=== PATIENT | male | born 1945 | race Caucasian/White ===

== ENCOUNTER 2020-11-21 08:32 | Emergency (ER) | payer MEDICARE ==
[2020-11-21] MEDS ORDERED: Adacel Vial IM ONE ×2 (08:45→09:49)
[2020-11-21 09:04] VITALS: O2SAT 98
--- NOTE | 2020-11-21 09:20 | XRAY ---
Indication: Right head laceration following fall. Multiple contiguous axial images obtained through the head without contrast. Comparison: July 04, 2007. Again age-appropriate global atrophy, moderate periventricular degenerative micro-ischemia bilaterally, right ventricular shunt catheter with tip again in frontal horn of left lateral ventricle, and scattered dural calcifications bilaterally. Slight increasing diffuse ventriculomegaly. No acute intracranial hemorrhage, abnormal extra-axial fluid collection, or mass effect. Fourth ventricle is midline. Tiny right parietal scalp hematoma. Bony calvarium intact. Paranasal sinuses and mastoid air cells are clear. Impression: 1. Slight increasing ventriculomegaly with again ventricular shunt catheter in situ. 2. Tiny right parietal scalp hematoma. No underlying fracture or acute intracranial hemorrhage. 3. Again global atrophy, degenerative micro-ischemia, and dural calcifications.
--- NOTE | 2020-11-21 09:25 | ERPHSYRPT ---
- History of Present Illness Source: patient, other (Brother) Patient Subjective Stated Complaint: Head injury Triage Nursing Assessment: Patient brought back to ED via w/c and transferred to bed with assist of 1. Patient A+O X 3. Patient's skin pink,warm and dry. Patient complains of head injury after falling. Patient states he was taking a walk outside and it started raining he was trying to get inside quickly and tripped over a rug and it his head. Patient has small abrasion noted to right side of forehead and right side of chest. No active bleeding noted. Physician History: 75 yo wm w Parkinson's Ds/Dementia slipped and fell in yard this morning hitting his R frontal scalp area. LOC is denied, but he was dazed. He is not on anticoagulants. He denies C/T/L-spine pain/chest pain/focal weakness/hip pain/cough/fever/N/V/D. Occurred: just prior to arrival Reason for Fall: slipped, tripped Injuries/Pain Location: head, chest Loss of Consciousness: no loss of consciousness, dazed Quality: aching Severity of Pain-Max: moderate Severity of Pain-Current: moderate Modifying Factors: Improves With: nothing Associated Symptoms (Fall): headache, No abdominal pain, No back pain, No confusion, No chest pain, No dizziness, No extremity injury, No lightheadedness, No muscle spasms, No nausea, No neck pain, No ringing in ears, No seizures, No shortness of breath, No slurred speech, No trouble walking, No vomiting, No vision changes Allergies/Adverse Reactions: Iodinated Contrast Media Allergy (Verified 11/21/20 08:49) morphine Allergy (Verified 11/21/20 08:49) Home Medications: Amantadine HCl [Amantadine] 1 tab PO BID 11/21/20 [History] Phenytoin Sod Extended 100 mg* [Dilantin 100 MG] 1 tab PO BID 11/21/20 [History] Hx Influenza Vaccination/Date Given: Yes Hx Pneumococcal Vaccination/Date Given: No Immunizations Up to Date: Yes Travel Risk - International Travel Have you traveled outside of the country in past 3 weeks: No - Coronavirus Screening Are you exhibiting any of the following symptoms?: No Close contact with a COVID-19 positive Pt in past 14-21 Days: No - Vaccine Status Have you recieved a Covid-19 vaccination: Yes Primary Therapist: Modern[facility] - Vaccination Dates Date of 2cond Vaccination (if applicable): 07/02/2020 - Review of Systems Constitutional: No Symptoms Eyes: No Symptoms Ears, Nose, & Throat: No Symptoms Respiratory: No Symptoms Cardiac: No Symptoms Abdominal/Gastrointestinal: No Symptoms, Appetite Changes Musculoskeletal: No Symptoms Skin: No Symptoms Neurological: No Symptoms, Headache Psychological: No Symptoms Endocrine: No Symptoms Hematologic/Lymphatic: No Symptoms Immunological/Allergic: No Symptoms - Past Medical History Pertinent Past Medical History: Yes Neurological History: Alzheimer's Disease, Dementia, Seizures, Other ENT History: No Pertinent History Cardiac History: No Pertinent History Respiratory History: No Pertinent History Endocrine Medical History: No Pertinent History Musculoskeletal History: No Pertinent History GI Medical History: No Pertinent History History: No Pertinent History Psycho-Social History: No Pertinent History Male Reproductive Disorders: No Pertinent History Other Medical History: Parkinson's disease - Past Surgical History Past Surgical History: Yes Musculoskeletal: Orthopedic Surgery Other Surgical History: back surgery X 2, Shunt to head, Left hip replacement - Social History Smoking Status: Never smoker Exposure to second hand smoke: No Drug Use: none Patient Lives Alone: No (lives with family) Significant Family History: no pertinent family hx - Nursing Vital Signs Nursing Vital Signs: Initial Vital Signs Temperature 98.2 F 11/21/20 08:52 Pulse Rate 76 11/21/20 08:52 Respiratory Rate 18 11/21/20 08:52 Blood Pressure 145/79 11/21/20 08:52 O2 Sat by Pulse Oximetry 98 11/21/20 08:52 Pain Scale Pain Intensity 4 Hypertensive - Joyce Coma Score Best Eye Response (Joyce): (4) open spontaneously Best Verbal Response ([place]): (5) oriented Best Motor Response ([place]): (6) obeys commands [place] Total: 15 - Physical Exam General Appearance: no apparent distress Head Injury: active bleeding, tenderness (R frontal scalp) Eye Exam: PERRL/EOMI, eyes nml inspection ENT Exam: airway nml, No evidence of ENT injury, No clear fluid (ears), No clear fluid (nose) Neck Exam: supple, trachea midline, full range of motion (C-spine nttp) Respiratory/Chest Exam: chest tenderness (Small abrasion R superior thorax w mild TTP), normal breath sounds, No respiratory distress Cardiovascular Exam: normal heart sounds, regular rate/rhythm, normal peripheral pulses, No murmur Gastrointestinal Exam: soft, normal bowel sounds, No tenderness Back Exam: normal inspection, normal range of motion, No CVA tenderness, No vertebral tenderness (No T/L-spine ttp) Extremity Exam: normal inspection, pelvis stable Peripheral Pulses: carotid (R): 2+, carotid (L): 2+ Neurologic Exam: alert, oriented x 3, cooperative, wine pasteurizer II-XII nml as tested, normal mood/affect, nml cerebellar function, nml station & gait, sensation nml, No motor deficits, No sensory deficit Skin Exam: normal color, warm, dry SpO2 Interpretation: normal SpO2: 98 O2 Delivery: Room Air - Course Nursing assessment & vital signs reviewed: Yes - Radiology Exams Chest X-ray Interpretation: Discussed w/ radiologist (CXR wo acute disease) - CT Exams Head CT Interpretation: Tele-radiologist Report (No skull fx/intracranial bleed) Cervical Spine CT Interpretation: Discussed w/radiologist (No fx) Ordered Tests: Active Orders 24 hr Category Date Time Status CERVICAL SPINE WO CONTRAST [CT] Stat Exams 11/21/20 08:44 Completed CHEST 1 VIEW (PORTABLE) Stat Exams 11/21/20 08:45 Completed HEAD WITHOUT CONTRAST [CT] Stat Exams 11/21/20 08:44 Completed Medication Summary Discontinued Medications Generic Name Dose Route Start Last Admin Trade Name Freq PRN Reason Stop Dose Admin Diphtheria/Tetanus/Acell Pertussis 0.5 ml 11/21/20 08:45 11/21/20 09:57 Adacel Vial IM 11/21/20 08:46 0.5 ml .ONCE ONE Administration Diphtheria/Tetanus/Acell Pertussis Confirm 11/21/20 09:49 Adacel Vial Administered 11/21/20 09:50 Dose 0.5 ml IM .STK-MED ONE Ketorolac Tromethamine 30 mg 11/21/20 09:38 11/21/20 09:50 Toradol 30 Mg Injection IM 11/21/20 09:39 30 mg STAT ONE Administration Ketorolac Tromethamine Confirm 11/21/20 09:48 Toradol 30 Mg Injection Administered 11/21/20 09:49 Dose 30 mg .ROUTE .STK-MED ONE - Progress Progress: improved Progress Note: 11/21/20 09:39 Tdap/30mg IM Toradol Counseled pt/family regarding: diagnosis, need for follow-up, rad results - Departure Departure Disposition: Home Clinical Impression: Minor head injury Condition: Stable Critical Care Time: No Referrals: LUCIANO GONZALEZ MD [Primary Care Provider] - Instructions: Concussion, Adult (DC), Minor Head Injury (DC) Additional Instructions: Ice to contused areas for 12-24 hours Toradol as needed for pain Wash abrasions twice a day with soap/water Watch for signs of infection-redness/pain/pus/temperature greater than 100.5 Return to ER for increasing pain/Focal weakness/Vomiting more than 4 times within 1 hour Prescriptions: Ketorolac Tromethamine [Toradol] 10 mg PO TIDPRN PRN #7 tablet PRN Reason: Pain
--- NOTE | 2020-11-21 09:26 | XRAY ---
Indication: Status post fall. Multiple contiguous axial images obtained through the cervical spine. Sagittal and coronal reformatted images obtained. Comparison: None Osseous structures demineralized consistent with patient's age. Axial images negative for acute fracture, suspicious bony lesions, or spinal canal stenosis. Moderate/significant multilevel degenerative endplate spurring, C5 and bilateral degenerative facet hypertrophy. Also moderate atlantoaxial degenerative arthropathy minimal C5-C6/C6-C7 degenerative vacuum disc phenomena. Sagittal and coronal reformatted images demonstrates lordotic straightening, positional versus paraspinal spasm. 2-3 mm C3 and 3-4 mm C4 anterior listhesis. No acute compression fracture or jumped facet. Normal appearing craniocervical junction. Visualized noncontrasted soft tissues demonstrates minimal carotid calcifications and biapical pleural parenchymal processes/scarring. Impression: 1. Cervical lordotic straightening, positional versus paraspinal spasm. 2. Osteopenia, multilevel degenerative spondylosis, and C3/C4 grade 1 spondylolisthesis. 3. Negative acute fracture.
--- NOTE | 2020-11-21 09:26 | XRAY ---
Indication: Status post fall. Comparison: None Portable chest demonstrates normal heart and lungs. Bony thorax intact with mild osteopenia and degenerative changes.
[2020-11-21] MEDS ORDERED: TORAdol 30 mg Injection IM ONE (09:38)
[2020-11-21] MEDS ORDERED: TORAdol 30 mg Injection ONE (09:48)
[2020-11-21 10:04] VITALS: BP 141/93; PULSE 91
== END 2020-11-21 10:25 | disposition home or self-care (01) ==
LOC: ED 08:32
DX: S00.83XA Contusion of other part of head, initial encounter (principal); W01.0XXA Fall on same level from slipping, tripping and stumbling without subsequent striking against object, initial encounter; R51.9 Headache, unspecified; R07.89 Other chest pain; Z79.899 Other long term (current) drug therapy; S00.81XA Abrasion of other part of head, initial encounter
CPT/HCPCS: 70450; 71045; 72125; 90471; 90715; 96372; 99284; J1885

== ENCOUNTER 2021-10-03 10:45 | Observation (INO) | payer MEDICARE ==
[2021-10-03 12:28] LABS: Absolute Neutrophil Ct (ANC) 4.05 x10^3/uL (1.4-6.9); Basophil (Absolute #) 0.07 x10^3/uL (0-0.4); Eosinophil % 3.2 % (0.00-5.0); Eosinophil (Absolute #) 0.21 x10^3/uL (0-0.5); Hematocrit 43.6 % (42-50); Hemoglobin 14.2 g/dL (12.5-18.0); Lymphocyte (Absolute #) 1.54 x10^3/uL (1.0-4.6); Lymphocytes % 23.2 % (24.0-44.0); Mean Cell Volume 98.2 fL (78-100); Mean Corpuscular Hgb Concent. 32.6 g/dL (32-36); Mean Platelet Volume 9.1 fL (7.5-11.0); Monocyte (Absolute #) 0.74 x10^3/uL (0.0-1.3); Monocytes % 11.1 % (0.0-12.0); Neutrophil % 60.9 % (36.0-66.0); Platelet Count 265 x10^3/uL (150-450); Red Blood Count 4.44 x10^6/uL (4.1-5.6); Red Cell Distribution Width 12.6 % (11.5-14.0); White Blood Count 6.6 x10^3/uL (4.0-10.5)
[2021-10-03 12:34] LABS: INFLUENZA A NEGATIVE (NEGATIVE); INFLUENZA B NEGATIVE (NEGATIVE); RESPIRATORY SYNCTIAL VIRUS NEGATIVE (Negative); SARS-CoV-2 Xpert Express NEGATIVE (NEGATIVE)
[2021-10-03 12:50] LABS: ALBUMIN 4.2 g/dL (3.5-5.0); ALKALINE PHOSPHATASE 117 U/L (38-126); BLOOD UREA NITROGEN 20 mg/dL (9-20); CHLORIDE 101 mmol/L (98-107); Calcium 9.4 mg/dL (8.4-10.2); Carbon Dioxide 26 mmol/L (22-30); Creatinine 1 0.84 mg/dL (0.66-1.25); EST GLOMERULAR FILTRATION RATE > 60.0 ML/MIN; Glucose 142 mg/dL (74-106); NT PRO BNP 1410 pg/mL (0-1800); Potassium 4.2 mmol/L (3.5-5.1); SGOT/AST 34 U/L (17-59); SGPT/ALT 38 U/L (0-50); SODIUM 137 mmol/L (137-145); Total Protein 7.9 g/dL (6.3-8.2)
[2021-10-03] MEDS: Nicoderm CQ 21 MG TOP SCH (12:53)
[2021-10-03] MEDS: Lasix 40 MG/4 ML IV SCH (12:54)
[2021-10-03] MEDS ORDERED: MEDICATION INTERVENTION MC SCH (14:30)
--- NOTE | 2021-10-03 15:02 | XRAY ---
Indication: Short of breath. Comparison: November 21, 2020. PA/lateral chest again hyperinflated and clear. Heart not enlarged with new small hiatal hernia. Bony thorax intact again with osteopenia and degenerative changes. No acute findings.
[2021-10-03] MEDS: Mirapex 0.5 MG Tablet PO SCH ×2 (15:15→22:27)
[2021-10-03] MEDS: Sinemet 25/100 MG PO SCH ×2 (15:16→22:27)
--- NOTE | 2021-10-03 16:40 | XRAY ---
Indication: Bilateral leg swelling. Two-dimensional sonogram and color Doppler imaging of the major venous vessels of the left and right leg performed. Comparison: None No thrombus seen in the examined deep venous vessels of the left and right leg including greater saphenous vein. Veins demonstrate normal compressibility. Venous waveforms are normal with and without augmentation. Impression: Left and right legs negative for DVT.
[2021-10-03] MEDS ORDERED: TYLENOL EXTRA STRENGTH 500 MG PO PRN (17:51)
[2021-10-03] MEDS: ZYLOPRIM 100 MG PO SCH (18:31)
[2021-10-03] MEDS: Toprol-Xl 25MG Tablets PO SCH (20:50)
[2021-10-03] MEDS: ELIQUIS 2.5 MG TABLET PO SCH (20:50)
[2021-10-03] MEDS ORDERED: Dilantin 100 MG PO SCH (22:00)
[2021-10-03] MEDS ORDERED: AMANTADINE HCL 100 MG PO SCH (22:00)
[2021-10-04] MEDS: Toprol-Xl 25MG Tablets PO SCH (10:12)
[2021-10-04] MEDS: Lasix 40 MG/4 ML IV SCH (10:12)
[2021-10-04] MEDS: Sinemet 25/100 MG PO SCH (10:12)
[2021-10-04] MEDS: ELIQUIS 2.5 MG TABLET PO SCH (10:12)
[2021-10-04] MEDS: Mirapex 0.5 MG Tablet PO SCH (10:12)
[2021-10-04] MEDS: ZYLOPRIM 100 MG PO SCH (10:13)
[2021-10-04] MEDS: Nicoderm CQ 21 MG TOP SCH (11:03)
--- NOTE | 2021-10-04 11:25 | ECHO ---
Transthoracic echocardiographic examination and color Doppler was done on 10/03/2021. INDICATION: Shortness of breath. IMPRESSION: 1) NO DEFINITE REGIONAL WALL MOTION ABNORMALITY. ESTIMATED GLOBAL LEFT VENTRICULAR EJECTION FRACTION AROUND 50 TO 55%. 2) MILD MITRAL REGURGITATION. 3) TRACE TRICUSPID REGURGITATION. RIGHT VENTRICULAR SYSTOLIC PRESSURE OF 40 MM OF MERCURY. 4) LEFT VENTRICULAR HYPERTROPHY. The left ventricle is visualized and demonstrated adequate motion of all the segments. Estimated global left ventricular ejection fraction of around 50 to 55%. There is some mild left ventricular hypertrophy. The mitral valve is seen and this opens adequately. There is mild mitral regurgitation. Left atrium is upper limits of normal. The aortic valve opens adequately. The peak gradient across the aortic valve is 11 mm of Mercury. The aortic root appears to be at upper limits of normal. The right side chambers are normal. There is trace tricuspid regurgitation. The right ventricular systolic pressure of 40 mm of Mercury.
[2021-10-04 12:16] VITALS: BP 126/56; PULSE 77; O2SAT 94
--- NOTE | 2021-10-04 17:56 | PCM.SSS ---
History of Present Illness - Chief Complaint Chief Complaint: shortness of breath, leg swelling for 3-4 days History of Present Illness: is a 76 year old male seen in office c/o palpitations and shortness of breath for 2-3 days. He has difficulty in breathing even at rest. - Review of Systems Constitutional: Fatigue, Lethargy, Weakness, No Fever, No Chills Eyes: No Symptoms Ears, Nose, & Throat: No Symptoms Respiratory: Orthopnea, Short Of Breath, No Cough Cardiac: Edema, Palpitations, No Chest Pain, No Syncope Abdominal/Gastrointestinal: No Abdominal Pain, No Nausea, No Vomiting, No Diarrhea Genitourinary Symptoms: No Dysuria Musculoskeletal: No Back Pain, No Neck Pain Skin: No Rash Neurological: No Dizziness, No Focal Weakness, No Sensory Changes Psychological: No Symptoms Endocrine: No Symptoms Hematologic/Lymphatic: No Symptoms Immunological/Allergic: No Symptoms Medications & Allergies Home Medications: Home Medication List Phenytoin Sod Extended 100 mg* [Dilantin 100 MG] 100 mg PO HS 11/21/20 [History Confirmed 10/03/21] amantadine HCL [Amantadine] 100 mg PO BID 11/21/20 [History Confirmed 10/03/21] Carbidopa/Levodopa 25/100 mg [Sinemet 25/100 MG] 1 tab PO TID 10/03/21 [History Confirmed 10/03/21] Pramipexole Di-HCl 0.5 mg [Mirapex 0.5 MG Tablet] 0.5 mg PO TID 10/03/21 [History Confirmed 10/03/21] Allopurinol 100 mg [Zyloprim 100 mg] 100 mg PO DAILY #30 tablet 10/04/21 [Rx] Apixaban [Eliquis 2.5 mg Tablet] 5 mg PO BID #60 tablet 10/04/21 [Rx] Furosemide 20 mg [Lasix 20 mg] 20 mg PO DAILY #30 tablet 10/04/21 [Rx] Metoprolol Succinate 25 mg Xl* [Toprol-Xl 25MG Tablets] 25 mg PO DAILY #30 tab 10/04/21 [Rx] Allergies/Adverse Reactions: Allergies Allergy/AdvReac Type Severity Reaction Status Date / Time Iodinated Contrast Media Allergy Verified 10/03/21 12:22 morphine Allergy Verified 10/03/21 12:22 - Past Medical History Past Medical History: Yes Neurological History: Alzheimer's Disease, Dementia, Seizures, Other ENT History: No Pertinent History Cardiac History: No Pertinent History Respiratory History: No Pertinent History Endocrine Medical History: No Pertinent History Musculoskelatal History: No Pertinent History GI Medical History: No Pertinent History History: No Pertinent History Pyscho-Social History: No Pertinent History Male Reproductive Disorders: No Pertinent History Comment: Parkinson's disease - Past Surgical History Past Surgical History: Yes Musculskeletal Surgical Hx: Orthopedic Surgery Other Surgical History: back surgery X 2, Shunt to head, Left hip replacement - Social History Smoking Status: Never smoker Exposure to second hand smoke: No Alcohol: None Drug Use: none Significant Family History: no pertinent family hx - Physical Exam Vital Signs: Vital Signs - 24 hr Temp Pulse Resp BP Pulse Ox 10/04/21 12:00 96.6 F 77 16 126/56 94 L 10/04/21 08:00 97.9 F 68 16 134/67 97 10/04/21 07:41 20 10/04/21 04:00 20 10/04/21 03:51 97.3 F 82 20 104/69 96 10/04/21 00:00 16 10/03/21 23:39 97.7 F 100 H 16 117/61 95 10/03/21 20:00 97.5 F 102 H 15 144/76 95 General Appearance: no apparent distress, alert Neurologic Exam: alert, oriented x 3, cooperative, normal mood/affect, nml cerebellar function, nml station & gait, sensation nml, No motor deficits Eye Exam: PERRL/EOMI, eyes nml inspection Ears, Nose, Throat Exam: normal ENT inspection, TMs normal, pharynx normal, moist mucous membranes Neck Exam: normal inspection, non-tender, supple, full range of motion Respiratory Exam: diminished breath sounds, accessory muscle use, crack les/rales, rhonchi, No respiratory distress Cardiovascular Exam: irregular Gastrointestinal/Abdomen Exam: soft, normal bowel sounds, No tenderness, No mass Back Exam: normal inspection, normal range of motion, No CVA tenderness, No vertebral tenderness Extremity Exam: normal inspection, normal range of motion, pelvis stable Skin Exam: normal color, warm, dry, No rash Lymphatic Exam: No adenopathy Results - Labs Lab/Micro Results: Lab Results-Last 24 Hours 10/03/21 Range/Units 18:57 Troponin I 0.021 (0.000-0.034) ng/mL - Radiology Impressions Radiology Exams & Impressions: Radiology Procedures Category Date Time Status CHEST 2 VIEWS (PA AND LAT) Routine Exams 10/03/21 13:46 Completed ECHO W/2D AND DOPPLER [US] Routine Exams 10/03/21 13:45 Draft VENOUS BILATERAL EXTREMITY [US] Stat Exams 10/03/21 16:25 Completed Imaging Report Continued Page: Name: GENNY BABIN Procedure Date: 10/03/21 Procedures: US/ECHO W/2D AND DOPPLER Technologist: Magdalena Guo Transcribed: 10/04/21 111 Repeater Chief: Dorcas Shen Printed: [~ rep prt dt last] [~ rep prt tm last] Page: Imaging Report [~ rep ct labl] Technologist: Magdalena Guo Transcribed: 10/04/21 111 Repeater Chief: Dorcas Shen Printed: [~ rep prt dt last] [~ rep prt tm last] Page: Imaging Report [~ rep ct labl] US/ECHO W/2D AND DOPPLER Transthoracic echocardiographic examination and color Doppler was done on 10/03/2021. INDICATION: Shortness of breath. IMPRESSION: 1) NO DEFINITE REGIONAL WALL MOTION ABNORMALITY. ESTIMATED GLOBAL LEFT VENTRICULAR EJECTION FRACTION AROUND 50 TO 55%. 2) MILD MITRAL REGURGITATION. 3) TRACE TRICUSPID REGURGITATION. RIGHT VENTRICULAR SYSTOLIC PRESSURE OF 40 MM OF MERCURY. 4) LEFT VENTRICULAR HYPERTROPHY. The left ventricle is visualized and demonstrated adequate motion of all the segments. Estimated global left ventricular ejection fraction of around 50 to 55%. There is some mild left ventricular hypertrophy. The mitral valve is seen and this opens adequately. There is mild mitral regurgitation. Left atrium is upper limits of normal. The aortic valve opens a dequately. The peak gradient across the aortic valve is 11 mm of Mercury. The aortic root appears to be at upper limits of normal. The right side chambers are normal. There is trace tricuspid regurgitation. The right ventricular systolic pressure of 40 mm of Mercury. Assessment/Plan (1) Atrial fibrillation and flutter Status: Acute Assessment & Plan: Chief Complaint Diagnosis LEG SWELLING Allergies Allergy/AdvReac Type Severity Reaction Status Date / Time Iodinated Contrast Media Allergy Verified 10/03/21 12:22 morphine Allergy Verified 10/03/21 12:22 Vital Signs (Last 24 hours) Temp Pulse Resp BP Pulse Ox 10/04/21 12:00 96.6 F 77 16 126/56 94 L 10/04/21 08:00 97.9 F 68 16 134/67 97 10/04/21 07:41 20 10/04/21 04:00 20 10/04/21 03:51 97.3 F 82 20 104/69 96 10/04/21 00:00 16 10/03/21 23:39 97.7 F 100 H 16 117/61 95 10/03/21 20:00 97.5 F 102 H 15 144/76 95 Home Medications Medication Instructions Recorded Confirmed Last Taken Type Carbidopa/Levodopa 25/100 mg 1 tab PO TID 10/03/21 10/03/21 10/03/21 History [Sinemet 25/100 MG] Pramipexole Di-HCl 0.5 mg 0.5 mg PO TID 10/03/21 10/03/21 10/03/21 History [Mirapex 0.5 MG Tablet] Allopurinol 100 mg [Zyloprim 100 mg PO DAILY #30 tablet 10/04/21 Unknown Rx 100 mg] Apixaban [Eliquis 2.5 mg Tablet] 5 mg PO BID #60 tablet 10/04/21 Unknown Rx Furosemide 20 mg [Lasix 20 20 mg PO DAILY #30 tablet 10/04/21 Unknown Rx mg] Metoprolol Succinate 25 mg Xl* 25 mg PO DAILY #30 tab 10/04/21 Unknown Rx [Toprol-Xl 25MG Tablets] Current Medications Discontinued Medications Generic Name Dose Route Start Last Admin Trade Name Freq PRN Reason Stop Dose Admin Acetaminophen 500 mg 10/03/21 17:51 Acetaminophen 500 Mg Tablet PO 11/02/21 17:50 Q6H PRN PRN HEADACHE Allopurinol 100 mg 10/03/21 18:00 10/04/21 10:13 Allopurinol 100 Mg Tablet PO 11/02/21 17:59 100 mg DAILY DAVID Administration Apixaban 5 mg 10/03/21 22:00 10/04/21 10:12 Apixaban 2.5 Mg Tablet PO 11/02/21 21:59 5 mg BID DAVID Administration Carbidopa/Levodopa 1 tab 10/03/21 15:00 10/04/21 10:12 Carbidopa/Levodopa 25/100 1 Tab Tablet PO 11/02/21 14:59 1 tab TID DAVID Administration Furosemide 40 mg 10/03/21 12:45 10/04/21 10:12 Furosemide 40 Mg/4 Ml Vial IV 11/02/21 12:44 40 mg DAILY DAVID Administration Metoprolol Succinate 25 mg 10/03/21 22:00 10/04/21 10:12 Metoprolol Succinate 25 Mg Xl Tab PO 11/02/21 21:59 25 mg DAILY DAVID Administration Miscellaneous Information 1 each 10/03/21 14:30 Medication Intervention 1 Each Each 11/02/21 14:29 .RN TO CHECK DAVID Nicotine 21 mg 10/03/21 12:15 10/04/21 11:03 Nicotine 21 Mg/Patch Patch TOP 11/02/21 12:14 21 mg Q24H DAVID Administration Phenytoin Sodium 100 mg 10/03/21 22:00 10/03/21 22:27 Phenytoin Sodium Extended 100 Mg Capsule PO 11/02/21 21:59 100 mg HS DAVID Administration Pramipexole Dihydrochloride 0.5 mg 10/03/21 15:00 10/04/21 10:12 Pramipexole Di-Hcl 0.5 Mg Tab PO 11/02/21 14:59 0.5 mg TID DAVID Administration Intake & Output (Last 24 hours) 10/02/21 10/03/21 10/04/21 10/05/21 11:59 11:59 11:59 11:59 Intake Total 1020 Output Total 1800 Balance -780 Weight 75.1 kg Laboratory Results (Last 24 hours) 10/03/21 18:57 Troponin I 0.021 Orders (Last 24 hours) Category Date Time Status Discharge Routine Discharge 10/04/21 Ordered Discharge/Telephone Order Routine Discharge 10/04/21 Active TROPONIN Stat Lab 10/03/21 18:57 Completed Acetaminophen 500 mg [Tylenol Extra Strength 500 mg* Med 10/03/21 17:51 Discontinued ] 500 mg PO Q6H PRN PRN Allopurinol 100 mg [Zyloprim 100 mg] Med 10/03/21 18:00 Discontinued 100 mg PO DAILY Apixaban [Eliquis 2.5 mg Tablet] Med 10/03/21 22:00 Discontinued 5 mg PO BID Metoprolol Succinate 25 mg Xl* [Toprol-Xl 25MG Tablets* Med 10/03/21 22:00 Discontinued ] 25 mg PO DAILY Phenytoin Sod Extended 100 mg* [Dilantin 100 MG] Med 10/03/21 22:00 Discontinued 100 mg PO HS EKG STAT RT 10/03/21 18:46 Completed Patient Care Notes (Last 24 hours) 10/04/21 14:41 Case Management Note by Hermelinda May S/W DR. PADILLA OFFICE- THEY WILL PUT A NOTE ON THE CHART TO S/W ABOUT ELIQUIS AT HIS APT. ON SATURDAY Initialized on 10/04/21 14:41 - END OF NOTE 10/04/21 14:33 Case Management Note by Hermelinda May BROTHER NOTIFIED OF SAMPLES ARE OFFICE- WILL PICK THEM UP AND GET THEM TO PATIENT THIS EVENING. HE WAS NOTIFIED PATIENT CAN TALK WITH PHARMACY AND MD TO SEE IF THERE ARE ANY ADDITIONAL ASSISTANCE HE CAN GET TO PAY FOR THE ELIQUIS. MESSAGE ALSO LEFT WITH MELANIA MAURICIO TO LET HER KNOW THE SAME Initialized on 10/04/21 14:33 - END OF NOTE 10/04/21 14:05 Case Management Note by Hermelinda May NOTED ELIQUIS ON DC PAPERWORK- CALLED [facility] TO CHECK ON CRUZ. THEY WILL NOT HAVE IT IN UNTIL TOMORROW AND IT WILL LIKLY NOT BE COVERED BY PATIENT'S I NSURANCE. CALLED DR. ROTHMAN OFFICE- THEY HAVE SAMPLES AVAILABLE FOR PATIENT.CALLED PATIENT, BRENNA AND BROTHER BILL TO NOTIFY THEM OF THIS- NO ONE ANSWERED. LM X 3 Initialized on 10/04/21 14:05 - END OF NOTE 10/03/21 18:49 Nursing Note by Dottie Ruffin patient c/o increased shortness of breath. HR [address] Tyra Gonzalez. EKG. troponin, and new medications ordered ( see MAR) Initialized on 10/03/21 18:49 - END OF NOTE Code(s): I48.91 - UNSPECIFIED ATRIAL FIBRILLATION; I48.92 - UNSPECIFIED ATRIAL FLUTTER (2) CHF (congestive heart failure), NYHA class II Status: Acute Code(s): I50.9 - HEART FAILURE, UNSPECIFIED (3) Osteoarthritis of knee Status: Acute Code(s): M17.10 - UNILATERAL PRIMARY OSTEOARTHRITIS, UNSPECIFIED KNEE (4) Parkinson's disease (tremor, stiffness, slow motion, unstable posture) Status: Acute Code(s): G20 - PARKINSON'S DISEASE Hospital Summary - Hospital Course Hospital Course: Last Vital Signs Temp 96.6 F 10/04/21 12:00 Pulse 77 10/04/21 12:00 Resp 16 10/04/21 12:00 BP 126/56 10/04/21 12:00 Pulse Ox 94 L 10/04/21 12:00 Allergies Iodinated Contrast Media Allergy (Verified 10/03/21 12:22) morphine Allergy (Verified 10/03/21 12:22) Intake & Output 10/04/21 10/05/21 11:59 11:59 Intake Total 1020 Output Total 1800 Balance -780 Orders 10/04/21 Discharge Routine Discharge/Telephone Order Routine Lab Tests 10/03/21 18:57 Troponin I 0.021 Chief Complaint Diagnosis LEG SWELLING Allergies Allergy/AdvReac Type Severity Reaction Status Date / Time Iodinated Contrast Media Allergy Verified 10/03/21 12:22 morphine Allergy Verified 10/03/21 12:22 Vital Signs (Last 24 hours) Temp Pulse Resp BP Pulse Ox 10/04/21 12:00 96.6 F 77 16 126/56 94 L 10/04/21 08:00 97.9 F 68 16 134/67 97 10/04/21 07:41 20 10/04/21 04:00 20 10/04/21 03:51 97.3 F 82 20 104/69 96 10/04/21 00:00 16 10/03/21 23:39 97.7 F 100 H 16 117/61 95 10/03/21 20:00 97.5 F 102 H 15 144/76 95 Home Medications Medication Instructions Recorded Confirmed Last Taken Type Carbidopa/Levodopa 25/100 mg 1 tab PO TID 10/03/21 10/03/21 10/03/21 History [Sinemet 25/100 MG] Pramipexole Di-HCl 0.5 mg 0.5 mg PO TID 10/03/21 10/03/2110/03/22 History [Mirapex 0.5 MG Tablet] Allopurinol 100 mg [Zyloprim 100 mg PO DAILY #30 tablet 10/04/21 Unknown Rx 100 mg] Apixaban [Eliquis 2.5 mg Tablet] 5 mg PO BID #60 tablet 10/04/21 Unknown Rx Furosemide 20 mg [Lasix 20 20 mg PO DAILY #30 tablet 10/04/21 Unknown Rx mg] Metoprolol Succinate 25 mg Xl* 25 mg PO DAILY #30 tab 10/04/21 Unknown Rx [Toprol-Xl 25MG Tablets] Current Medications Discontinued Medications Generic Name Dose Route Start Last Admin Trade Name Freq PRN Reason Stop Dose Admin Acetaminophen 500 mg 10/03/21 17:51 Acetaminophen 500 Mg Tablet PO 11/02/21 17:50 Q6H PRN PRN HEADACHE Allopurinol 100 mg 10/03/21 18:00 10/04/21 10:13 Allopurinol 100 Mg Tablet PO 11/02/21 17:59 100 mg DAILY DAVID Administration Apixaban 5 mg 10/03/21 22:00 10/04/21 10:12 Apixaban 2.5 Mg Tablet PO 11/02/21 21:59 5 mg BID DAVID Administration Carbidopa/Levodopa 1 tab 10/03/21 15:00 10/04/21 10:12 Carbidopa/Levodopa 25/100 1 Tab Tablet PO 11/02/21 14:59 1 tab TID DAVID Administration Furosemide 40 mg 10/03/21 12:45 10/04/21 10:12 Furosemide 40 Mg/4 Ml Vial IV 11/02/21 12:44 40 mg DAILY DAVID Administration Metoprolol Succinate 25 mg 10/03/21 22:00 10/04/21 10:12 Metoprolol Succinate 25 Mg Xl Tab PO 11/02/21 21:59 25 mg DAILY DAVID Administration Miscellaneous Information 1 each 10/03/21 14:30 Medication Intervention 1 Each Each 11/02/21 14:29 .RN TO CHECK DAVID Nicotine 21 mg 10/03/21 12:15 10/04/21 11:03 Nicotine 21 Mg/Patch Patch TOP 11/02/21 12:14 21 mg Q24H DAVID Administration Phenytoin Sodium 100 mg 10/03/21 22:00 10/03/21 22:27 Phenytoin Sodium Extended 100 Mg Capsule PO 11/02/21 21:59 100 mg HS DAVID Administration Pramipexole Dihydrochloride 0.5 mg 10/03/21 15:00 10/04/21 10:12 Pramipexole Di-Hcl 0.5 Mg Tab PO 11/02/21 14:59 0.5 mg TID DAVID Administration Intake & Output (Last 24 hours) 10/02/21 10/03/21 10/04/21 10/05/21 11:59 11:59 11:59 11:59 Intake Total 1020 Output Total 1800 Balance -780 Weight 75.1 kg Laboratory Results (Last 24 hours) 10/03/21 18:57 Troponin I 0.021 Orders (Last 24 hours) Category Date Time Status Discharge Routine Discharge 10/04/21 Ordered Discharge/Telephone Order Routine Discharge 10/04/21 Active TROPONIN Stat Lab 10/03/21 18:57 Completed Acetaminophen 500 mg [Tylenol Extra Strength 500 mg* Med 10/03/21 17:51 Discontinued ] 500 mg PO Q6H PRN PRN Allopurinol 100 mg [Zyloprim 100 mg] Med 10/03/21 18:00 Discontinued 100 mg PO DAILY Apixaban [Eliquis 2.5 mg Tablet] Med 10/03/21 22:00 Discontinued 5 mg PO BID Metoprolol Succinate 25 mg Xl* [Toprol-Xl 25MG Tablets* Med 10/03/21 22:00 Discontinued ] 25 mg PO DAILY Phenytoin Sod Extended 100 mg* [Dilantin 100 MG] Med 10/03/21 22:00 Discontinued 100 mg PO HS EKG STAT RT 10/03/21 18:46 Completed Patient Care Notes (Last 24 hours) 10/04/21 14:41 Case Management Note by Hermelinda May S/W DR. PADILLA OFFICE- THEY WILL PUT A NOTE ON THE CHART TO S/W ABOUT ELIQUIS AT HIS APT. ON SATURDAY Initialized on 10/04/21 14:41 - END OF NOTE 10/04/21 14:33 Case Management Note by Hermelinda May BROTHER NOTIFIED OF SAMPLES ARE OFFICE- WILL PICK THEM UP AND GET THEM TO PATIENT THIS EVENING. HE WAS NOTIFIED PATIENT CAN TALK WITH PHARMACY AND MD TO SEE IF THERE ARE ANY ADDITIONAL ASSISTANCE HE CAN GET TO PAY FOR THE ELIQUIS. MESSAGE ALSO LEFT WITH BRENNA- LULY TO LET HER KNOW THE SAME Initialized on 10/04/21 14:33 - END OF NOTE 10/04/21 14:05 Case Management Note by Hermelinda May NOTED ELIQUIS ON DC PAPERWORK- CALLED [facility] TO CHECK ON CR[facility]. THEY WILL NOT HAVE IT IN UNTIL TOMORROW AND IT WILL LIKLY NOT BE COVERED BY PATIENT'S INSURANCE. CALLED DR. ROTHMAN OFFICE- THEY HAVE SAMPLES AVAILABLE FOR PATIENT.CALLED PATIENT, BRENNA AND BROTHER DARIEN TO NOTIFY THEM OF THIS- NO ONE ANSWERED. LM X 3 Initialized on 10/04/21 14:05 - END OF NOTE 10/03/21 18:49 Nursing Note by Dottie Ruffin patient c/o increased shortness of breath. HR [address] Tyra Gonzalez. EKG. troponin, and new medications ordered ( see MAR) Initialized on 10/03/21 18:49 - END OF NOTE - Vitals & Intake/Output Vital Signs: Vital Signs Temperature 96.6 F 10/04/21 12:00 Pulse Rate 77 10/04/21 12:00 Respiratory Rate 16 10/04/21 12:00 Blood Pressure 126/56 10/04/21 12:00 O2 Sat by Pulse Oximetry 94 L 10/04/21 12:00 Intake & Output: Intake & Output 10/02/21 10/03/21 10/04/21 10/05/21 11:59 11:59 11:59 11:59 Intake Total 1020 Output Total 1800 Balance -780 Weight 75.1 kg - Lab Result Diagrams: 10/03/21 12:27 10/03/21 12:27 Lab Results-Last 24 Hrs: Lab Results-Last 24 Hours 10/03/21 Range/Units 18:57 Troponin I 0.021 (0.000-0.034) ng/mL - Radiology Exams Ordered Rad Exams-Entire Visit: Radiology Procedures Category Date Time Status CHEST 2 VIEWS (PA AND LAT) Routine Exams 10/03/21 13:46 Completed ECHO W/2D AND DOPPLER [US] Routine Exams 10/03/21 13:45 Draft VENOUS BILATERAL EXTREMITY [US] Stat Exams 10/03/21 16:25 Completed - Procedures and Test Procedures and Tests throughout Hospitalization: Therapy Orders & Screens 10/03/21 12:06 EKG STAT Comment: Diagnosis: LEG SWELLING 10/03/21 18:46 EKG STAT Comment: Diagnosis: LEG SWELLING - Discharge Discharge Date: 10/04/21 Disposition: Home, Self-Care Condition: Stable Prescriptions: New Furosemide 20 mg [Lasix 20 mg] 20 mg PO DAILY #30 tablet Apixaban [Eliquis 2.5 mg Tablet] 5 mg PO BID #60 tablet Metoprolol Succinate 25 mg Xl* [Toprol-Xl 25MG Tablets] 25 mg PO DAILY #30 tab Allopurinol 100 mg [Zyloprim 100 mg] 100 mg PO DAILY #30 tablet Continue amantadine HCL [Amantadine] 100 mg PO BID Phenytoin Sod Extended 100 mg* [Dilantin 100 MG] 100 mg PO HS Carbidopa/Levodopa 25/100 mg [Sinemet 25/100 MG] 1 tab PO TID Pramipexole Di-HCl 0.5 mg [Mirapex 0.5 MG Tablet] 0.5 mg PO TID Instructions: Gout (DC) Follow up with: GIANFRANCO TRUJILLO [CONSULTING PHYSICIAN] - 10/06/21 9:45 am LUCIANO GONZALEZ MD [Primary Care Provider] - 10/12/21 11:00 am
== END 2021-10-04 12:56 | disposition home or self-care (01) ==
LOC: MED SURG 10:58
PROVIDERS: ADMIT General Practice; ATTEND General Practice
DX: I48.91 Unspecified atrial fibrillation (principal); I50.9 Heart failure, unspecified; M17.10 Unilateral primary osteoarthritis, unspecified knee; G20 Parkinson's disease; M79.89 Other specified soft tissue disorders; I51.9 Heart disease, unspecified; Z79.899 Other long term (current) drug therapy; Z79.01 Long term (current) use of anticoagulants; Z20.828 Contact with and (suspected) exposure to other viral communicable diseases
CPT/HCPCS: 0241U; 36415; 71046; 80053; 83880; 84484; 84550; 85025; 85379; 93005; 93268; 93306; 93970; G0378; J1940; A9270-GY

== ENCOUNTER 2022-08-16 18:31 | Emergency (ER) | payer MEDICARE ==
[2022-08-16] MEDS ORDERED: BABY ASPIRIN 81 MG CHEW PO ONE (18:51)
--- NOTE | 2022-08-16 18:51 | ERPHSYRPT ---
- History of Present Illness Time Seen by Provider: 08/16/22 18:51 Historian: patient, family Exam Limitations: no limitations Patient Subjective Stated Complaint: Chest pain Triage Nursing Assessment: Patient brought into ED per w/c and transferred self to bed. Patient A+O X 3. Patient's skin pink, warm and dry. Patient complains of mid chest pain that started yesterday 12/02. Patient denies N/V. Lungs clear a/p niko. Physician History: This is a 77-year-old white male who was brought to the emergency department by his twin brother because of chest pain that started yesterday and continued on intermittently today. The pain described is mid chest in location that is nonradiating and is a achiness. There is been no nausea vomiting or diarrhea and no abdominal pain. There is been no evidence or complaints of shortness of breath at home. The patient has a history of seizure disorder and Parkinson's disease as well as Alzheimer's dementia. The patient's brother states that the patient, because of his Alzheimer's dementia, which is significant, he tends to focus on something that may have occurred yesterday but then does not exist now. He over traumatizes per his report. The plan that the brother wants to take is just to rule out an emergency and then give him a little something for pain. His transfer driver states that this patient will not be operated on from the cardiac standpoint. Timing/Duration: yesterday Activities at Onset: none Quality: aching Location: substernal, central Chest Pain Radiation: no radiation Severity of Pain-Max: moderate Severity of Pain-Current: moderate Modifying Factors: Improves With: other (Deep breath) Associated Symptoms: cough (Mild intermittent), other (Hurts to take a deep breath), No shortness of breath Nitro Today/Relief: no nitro taken today Aspirin Treatment Today: no aspirin today Allergies/Adverse Reactions: Iodinated Contrast Media Allergy (Verified 08/16/22 18:40) morphine Allergy (Verified 08/16/22 18:40) Home Medications: Phenytoin Sod Extended 100 mg* [Dilantin 100 MG] 100 mg PO HS 11/21/20 [History] amantadine HCL [Amantadine] 100 mg PO BID 11/21/20 [History] Carbidopa/Levodopa 25/100 mg [Sinemet 25/100 MG] 1 tab PO TID 10/03/21 [History] Pramipexole Di-HCl 0.5 mg [Mirapex 0.5 MG Tablet] 0.5 mg PO TID 10/03/21 [History] Hx Tetanus, Diphtheria Vaccination/Date Given: No Hx Influenza Vaccination/Date Given: Yes Hx Pneumococcal Vaccination/Date Given: Yes Immunizations Up to Date: Yes Travel Risk - International Travel Have you traveled outside of the country in past 3 weeks: No - Coronavirus Screening Are you exhibiting any of the following symptoms?: No Close contact with a COVID-19 positive Pt in past 14-21 Days: No - Vaccine Status Have you recieved a Covid-19 vaccination: Yes Health Care Aide: Moderna - Vaccination Dates Date of 2cond Vaccination (if applicable): 07/02/2020 - Review of Systems Constitutional: No Symptoms Eyes: No Symptoms Ears, Nose, & Throat: No Symptoms Respiratory: Cough (Mild intermittent) Cardiac: Chest Pain (Substernal non-radiating central achiness) Abdominal/Gastrointestinal: No Symptoms Genitourinary Symptoms: No Symptoms Musculoskeletal: No Symptoms Skin: No Symptoms Neurological: No Symptoms Psychological: No Symptoms Endocrine: No Symptoms Hematologic/Lymphatic: No Symptoms Immunological/Allergic: No Symptoms All Other Systems: Reviewed and Negative - Past Medical History Pertinent Past Medical History: Yes Neurological History: Alzheimer's Disease, Dementia, Seizures, Other ENT History: No Pertinent History Cardiac History: No Pertinent History Respiratory History: No Pertinent History Endocrine Medical History: No Pertinent History Musculoskeletal History: No Pertinent History GI Medical History: No Pertinent History History: No Pertinent History Psycho-Social History: No Pertinent History Male Reproductive Disorders: No Pertinent History Other Medical History: Parkinson's disease - Past Surgical History Past Surgical History: Yes Musculoskeletal: Orthopedic Surgery Other Surgical History: back surgery X 2, Shunt to head, Left hip replacement - Social History Smoking Status: Never smoker Exposure to second hand smoke: No Drug Use: none Patient Lives Alone: No (sister) Significant Family History: no pertinent family hx - Nursing Vital Signs Nursing Vital Signs: Initial Vital Signs Temperature 97.9 F 08/16/22 18:41 Pulse Rate 82 08/16/22 18:41 Respiratory Rate 20 08/16/22 18:41 Blood Pressure 90/50 08/16/22 18:41 O2 Sat by Pulse Oximetry 98 05/25/23 18:41 Pain Scale Pain Intensity 9 - Physical Exam General Appearance: no apparent distress, alert, anxiety Eye Exam: PERRL/EOMI, eyes nml inspection Ears, Nose, Throat Exam: normal ENT inspection, moist mucous membranes Neck Exam: normal inspection, non-tender, supple, full range of motion Respiratory Exam: normal breath sounds, chest tenderness (Central substernal), lungs clear, airway intact, No respiratory distress Cardiovascular Exam: regular rate/rhythm, normal heart sounds, normal peripheral pulses Gastrointestinal/Abdomen Exam: soft, normal bowel sounds, No tenderness Rectal Exam: not done Back Exam: normal inspection, normal range of motion, No CVA tenderness, No vertebral tenderness Extremity Exam: normal inspection, normal range of motion, pelvis stable Neurologic Exam: alert, oriented x 3, cooperative, software integration developer II-XII nml as tested, normal mood/affect, nml cerebellar function, nml station & gait, sensation nml Skin Exam: normal color, warm, dry Lymphatic Exam: No adenopathy SpO2 Interpretation: normal SpO2: 98 O2 Delivery: Room Air - Course Nursing assessment & vital signs reviewed: Yes EKG Interpreted by Me: RATE (81), A-fib, NORMAL AXIS, Other (No acute ischemic changes on today's twelve-lead EKG. His atrial fibrillation is rate controlled.) Ordered Tests: Active Orders 24 hr Category Date Time Status Websphere Commerce Architect STAT Care 08/16/22 18:51 Active EKG-ER Only STAT Care 08/16/22 18:51 Active IV Insertion STAT Care 08/16/22 18:51 Active Pulse Oximetry (ED) STAT Care 08/16/22 18:51 Active CHEST 1 VIEW (PORTABLE) Stat Exams 08/16/22 19:10 Taken CBC W DIFF Stat Lab 08/16/22 18:51 Completed CMP Stat Lab 08/16/22 18:51 Completed NT PRO BNPII Stat Lab 08/16/22 Ordered TROPONIN Q4H Lab 08/16/22 19:00 Completed TROPONIN Q4H Lab 08/16/22 23:00 Ordered TROPONIN Q4H Lab 08/17/22 03:00 Ordered Medication Summary Generic Name Dose Route Start Last Admin Trade Name Freq PRN Reason Stop Dose Admin Sodium Chloride 500 mls @ 500 mls/hr 08/16/22 19:48 08/16/22 19:49 Sodium Chloride 0.9% 500 Ml IV 08/16/22 20:47 500 mls/hr .Q1H ONE Administration Discontinued Medications Generic Name Dose Route Start Last Admin Trade Name [place] PRN Reason Stop Dose Admin Hydrocodone Bitart/Acetaminophen 5 ml 08/16/22 19:39 08/16/22 20:15 Hydrocodone/Acetaminophen 5 Ml Udcup PO 08/16/22 19:40 5 ml STAT STA Administration Hydrocodone Bitart/Acetaminophen Confirm 08/16/22 20:14 Hydrocodone/Acetaminophen 5 Ml Udcup Administered 08/16/22 20:15 Dose 5 ml .ROUTE .STK-MED ONE Aspirin 324 mg 08/16/22 18:51 08/16/22 19:06 Aspirin 81 Mg Tab.Chew PO 08/16/22 18:52 324 mg STAT ONE Administration Aspirin Confirm 08/16/22 19:03 Aspirin 81 Mg Tab.Chew Administered 08/16/22 19:04 Dose 324 mg .ROUTE .STK-MED ONE Sodium Chloride Confirm 08/16/22 19:46 Sodium Chloride 0.9% 500 Ml Administered 08/16/22 19:47 Dose 500 mls @ ud IV .STK-MED ONE Lab/Rad Data: Laboratory Result Diagrams 08/16/22 18:51 08/16/22 18:51 Laboratory Results 08/16/22 08/16/22 08/16/22 Range/Units 19:00 18:51 18:51 WBC 8.1 (4.0-10.5) x10^3/uL RBC 3.70 L (4.1-5.6) x10^6/uL Hgb 11.8 L (12.5-18.0) g/dL Hct 35.4 L (42-50) % MCV 95.7 (78-100) fL MCH 31.9 (26-32) pg MCHC 33.3 (32-36) g/dL RDW 12.8 (11.5-14.0) % Plt Count 313 (150-450) x10^3/uL MPV 9.1 (7.5-11.0) fL Gran % 64.4 (36.0-66.0) % Immature Gran % (Auto) 1.0 H (0.00-0.4) % Nucleat RBC Rel Count 0.0 (0.00-0.1) % Eos # (Auto) 0.16 (0-0.5) x10^3/uL Immature Gran # (Auto) 0.08 H (0.00-0.03) x10^3u/L Absolute Lymphs (auto) 1.73 (1.0-4.6) x10^3/uL Absolute Monos (auto) 0.86 (0.0-1.3) x10^3/uL Absolute Nucleated RBC 0.00 (0.00-0.01) x10^3u/L Lymphocytes % 21.3 L (24.0-44.0) % Monocytes % 10.6 (0.0-12.0) % Eosinophils % 2.0 (0.00-5.0) % Basophils % 0.7 (0.0-0.4) % Absolute Granulocytes 5.22 (1.4-6.9) x10^3/uL Basophils # 0.06 (0-0.4) x10^3/uL Sodium 132 L (137-145) mmol/L Potassium 4.0 (3.5-5.1) mmol/L Chloride 95 L (98-107) mmol/L Carbon Dioxide 26 (22-30) mmol/L Anion Gap 14.4 (5-15) MEQ/L BUN 23 H (9-20) mg/dL Creatinine 1.45 H (0.66-1.25) mg/dL Estimated GFR 50.0 ML/MIN Glucose 116 H (74-106) mg/dL Calcium 8.6 (8.4-10.2) mg/dL Total Bilirubin 0.40 (0.2-1.3) mg/dL AST 18 (17-59) U/L ALT 9 (0-50) U/L Alkaline Phosphatase 131 H (38-126) U/L Troponin I < 0.012 (0.000-0.034) ng/mL Serum Total Protein 7.1 (6.3-8.2) g/dL Albumin 4.0 (3.5-5.0) g/dL - Progress Progress: re-examined Air Movement: good Progress Note: 08/16/22 20:02 Chest x-ray was interpreted by me. There are no acute cardiopulmonary findings on today's chest x-ray 05/25/23 20:35 Clinically, the patient states that he has improved with our intervention. Patient's medical issues 1 of moderate complexity. Level of complexity and the work-up performed as based on the review of the patient's past medical history, review the patient's medication list, review of the patient's drug allergies, history of present illness, physical findings on examination. The work-up included twelve-lead EKG, troponin level, chest x-ray, CBC, CMP. I reviewed the results of the above work-up/studies. Patient has no acute, emergent medical issue. Patient be discharged home with instruction to follow-up with his primary care provider for further evaluation management. Blood Culture(s) Obtained: No Antibiotics given: No Counseled pt/family regarding: lab results, diagnosis, need for follow-up, rad results Medical Desision Making - Independent Historian Additional History obtained from: Relative/friend - Diagnostic Testing Diagnostic test were ordered, analyzed, and reviewed by me: Yes Radiological Interpretation: Interpreted by me - Risk of complications Low Risk: Low risk of morbidity from additional dx testing or treatment - Departure Departure Disposition: Home Clinical Impression: Chest pain Condition: Stable Critical Care Time: No Referrals: LUCIANO GONZALEZ MD [Primary Care Provider] - Follow up/PCP as directed Additional Instructions: Drink plenty of fluids. Take your medication as prescribed. Follow-up with your primary care provider and your transfer driver by phone on 08/17/2022 to update them on today's visit as well as to make a follow-up appointment the next 3 to 5 days.
[2022-08-16] MEDS ORDERED: BABY ASPIRIN 81 MG CHEW ONE (19:03)
[2022-08-16 19:13] LABS: Absolute Neutrophil Ct (ANC) 5.22 x10^3/uL (1.4-6.9); BASOPHIL % 0.7 % (0.0-0.4); Basophil (Absolute #) 0.06 x10^3/uL (0-0.4); Eosinophil (Absolute #) 0.16 x10^3/uL (0-0.5); Hematocrit 35.4 % (42-50); Hemoglobin 11.8 g/dL (12.5-18.0); IMMATURE GRAN # 0.08 x10^3u/L (0.00-0.03); Lymphocyte (Absolute #) 1.73 x10^3/uL (1.0-4.6); Lymphocytes % 21.3 % (24.0-44.0); Mean Cell Volume 95.7 fL (78-100); Mean Corpuscular Hemoglobin 31.9 pg (26-32); Mean Corpuscular Hgb Concent. 33.3 g/dL (32-36); Mean Platelet Volume 9.1 fL (7.5-11.0); Monocyte (Absolute #) 0.86 x10^3/uL (0.0-1.3); Monocytes % 10.6 % (0.0-12.0); Neutrophil % 64.4 % (36.0-66.0); Platelet Count 313 x10^3/uL (150-450); Red Cell Distribution Width 12.8 % (11.5-14.0); White Blood Count 8.1 x10^3/uL (4.0-10.5)
[2022-08-16 19:25] LABS: ANION GAP 14.4 MEQ/L (5-15); BILIRUBIN,TOTAL 0.4 mg/dL (0.2-1.3); Calcium 8.6 mg/dL (8.4-10.2); Creatinine 1 1.45 mg/dL (0.66-1.25); Total Protein 7.1 g/dL (6.3-8.2)
[2022-08-16] MEDS ORDERED: HYDROCODONE-ACETAMIN 2.5-108/5 ML SOLUTION PO STA (19:39)
[2022-08-16] MEDS ORDERED: Sodium Chloride 0.9% 500 ML 500 ML IV ONE ×2 (19:46→19:48)
[2022-08-16] MEDS ORDERED: HYDROCODONE-ACETAMIN 2.5-108/5 ML SOLUTION ONE (20:14)
[2022-08-16 21:16] VITALS: BP 103/63; PULSE 77; O2SAT 94
--- NOTE | 2022-08-17 09:14 | XRAY ---
Indication: Chest pain. Comparison: October 03, 2021 Portable chest again hyperinflated and clear. Heart not enlarged. Bony thorax intact again with osteopenia and mild degenerative changes. No new/acute findings.
== END 2022-08-16 21:10 | disposition home or self-care (01) ==
LOC: ED 18:31
DX: R07.9 Chest pain, unspecified (principal); G30.9 Alzheimer's disease, unspecified; F02.80 Dementia in other diseases classified elsewhere, unspecified severity, without behavioral disturbance, psychotic disturbance, mood disturbance, and anxiety; Z79.899 Other long term (current) drug therapy
CPT/HCPCS: 36000; 36415; 71045; 80053; 83880; 84484; 85025; 93005; 93041; 94760; 99284; A9270-GY